=== PATIENT | female | born 1945 | race Caucasian/White ===

== ENCOUNTER 2022-07-26 13:48 | Emergency (ER) | payer MEDICARE, SELFPAY ==
--- NOTE | ~2022-07-26 | XR_ITS ---
EXAMINATION: [id number] INDICATION: Right rib pain TECHNIQUE: A frontal view of the chest and 3 views of the right ribs were obtained. COMPARISON: None. FINDINGS: The lungs are free of acute opacities. There is no pneumothorax. There are small pleural ef fusions. There is enlargement of the main and central pulmonary arteries, consistent with pulmonary h ypertension. The heart size is normal. A dual-lead cardiac pacemaker of the left chest wall ends with leads in expected locations. No displaced rib fracture is identified. IMPRESSION: 1. No displaced rib fracture identified.. 2. Small pleural effusions. Reviewed, dictated and finalized at location B. [employer]
[2022-07-26 13:59] VITALS: BP 132/54; PULSE 73; RESP 20; TEMP 36.6; O2SAT 98
--- NOTE | 2022-07-26 15:28 | ED.GENADULT ---
HPI - General Adult General Chief complaint: Unspecified Stated complaint: right side rib area injury Source: patient Mode of arrival: ambulatory Limitations: no limitations History of Present Illness HPI narrative: Patient presents for evaluation of right-sided rib pain since last week. She indicates she was sitting in a recliner when she dropped an object. She attempted to reach over the chair and her right ribs pushed into the arm rest. Since that time she has had 8 of 10 pain in her right ribs. She does get some shortness of breath but this is chronic and not worse from baseline. Denies any cough. She is taking Tylenol for symptoms. Tylenol has not made a considerablel difference in her pain severity. She is a former smoker. Pain is worse with inspiration and movement. No additional complaints or concerns. Related Data Home Medications Medication Instructions Recorded Confirmed buspirone 7.5 mg tablet 7.5 mg TID 07/26/22 07/26/22 citalopram 20 mg tablet 20 mg DAILY 07/26/22 07/26/22 cyanocobalamin (vitamin B-12) 1,000 mcg MONTHLY 07/26/22 07/26/22 1,000 mcg/mL injection solution diltiazem HCl 30 mg tablet 30 mg TID 07/26/22 07/26/22 empagliflozin 10 mg tablet 10 mg DAILY 07/26/22 07/26/22 (Jardiance) flecainide 100 mg tablet 100 mg BID 07/26/22 07/26/22 furosemide 20 mg tablet 20 mg DAILY 07/26/22 07/26/22 glimepiride 2 mg tablet 2 mg DAILY 07/26/22 07/26/22 lisinopril 40 mg tablet 40 mg DAILY 07/26/22 07/26/22 loratadine 10 mg tablet 10 mg DAILY 07/26/22 07/26/22 magnesium oxide 400 mg (241.3 mg 400 mg DAILY 07/26/22 07/26/22 magnesium) tablet meclizine 25 mg tablet 25 mg PO BID PRN Pain 07/26/22 07/26/22 metformin 1,000 mg tablet 1,000 mg BID 07/26/22 07/26/22 methocarbamol 750 mg tablet 750 mg TID 07/26/22 07/26/22 metoprolol succinate 50 mg 75 mg PO DAILY 07/26/22 07/26/22 tablet,extended release 24 hr omeprazole 20 mg capsule,delayed 20 mg DAILY 07/26/22 07/26/22 release potassium chloride 8 mEq 8 meq DAILY 07/26/22 07/26/22 capsule,extended release simvastatin 40 mg tablet 40 mg DAILY 07/26/22 07/26/22 tramadol 50 mg tablet 50 mg PRN 07/26/22 07/26/22 warfarin 1 mg tablet 1 mg PRN 07/26/22 07/26/22 warfarin 5 mg tablet 5 mg DAILY 07/26/22 07/26/22 Allergies Allergy/AdvReac Type Severity Reaction Status Date / Time No Known Allergies Allergy Verified 07/26/22 14:15 Review of Systems Review of Systems: CONSTITUTIONAL: Denies fever, chills, or sweats. EYES: Denies visual changes, redness, or discharge. ENT: Denies rhinorrhea, congestion, sore throat, or otalgia. CARDIOVASCULAR: Denies palpitations, or edema. RESPIRATORY: Reports chronic shortness of breath, unchanged from baseline. Denies cough GASTROINTESTINAL: Denies abdominal pain, nausea, vomiting, or diarrhea. GENITOURINARY: Denies dysuria or hematuria. SKIN: Denies rash or itching. MUSCULOSKELETAL: Reports right-sided rib pain. Denies back pain, joint pain, or myalgia. NEUROLOGIC: Denies headache, numbness, dizziness, or weakness. PSYCHIATRIC: Denies anxiety or depression. PMFSH Past Medical History Medical History Afib Diabetes Hypertension Rib contusion Surgical History Surgical History History of cholecystectomy Family History Family History Mother Family history non-contributory Social History Social History Smoking status: Former smoker Substance use: never Living arrangements: alone Gender identity (if verbalized by the patient): Female Spiritual care concerns: No Exam Narrative: GENERAL: Well-appearing, well-nourished, and in no acute distress. HEAD: Normocephalic, atraumatic. EYES: PERRLA and EOMI. ENT: Nares clear, no rhinorrhea or epistaxis. Mucous me
== END 2022-07-26 15:38 | disposition home or self-care (01) ==
PROVIDERS: Emergency Provider Nurse Practitioner; PCP Family Medicine
DX: S20.211A Contusion of right front wall of thorax, initial encounter (principal); X50.0XXA Overexertion from strenuous movement or load, initial encounter; Z87.891 Personal history of nicotine dependence; I48.91 Unspecified atrial fibrillation; E11.9 Type 2 diabetes mellitus without complications; I10 Essential (primary) hypertension; Z79.01 Long term (current) use of anticoagulants
CPT/HCPCS: 71101; 99213; G0463

== ENCOUNTER 2024-02-25 16:00 | Emergency (ER) | payer OTHER, SELFPAY ==
--- NOTE | ~2024-02-25 | XR_ITS ---
Clinical Indication: Chest tightness PA and lateral views of the chest: Comparison: None Findings: The lungs are clear, without evidence of focal consolidation or pleural effusion. Prominent central pulmonary vessels suggest pulmonary hypertension. Cardiomediastinal silhouette is within nor mal limits, with pacemaker device. Bones and soft tissues are unremarkable. Impression: Clear lungs. Suspected pulmonary artery hypertension. Pacemaker device. Reviewed, dictated and finalized at location . Impression: Clear lungs. Suspected pulmonary artery hypertension. Pacemaker device.
[2024-02-25 16:16] VITALS: BP 168/94; PULSE 78; RESP 16; TEMP 37.3; O2SAT 98
--- NOTE | 2024-02-25 16:31 | ED.URI ---
HPI - URI/Sore Throat General Chief Complaint: Upper Respiratory Infection Stated Complaint: Headache/Sore Throat/Cough/Chest Congestion Time Seen by Provider: 02/25/24 16:12 Source: patient, RN notes reviewed and old records reviewed Mode of arrival: ambulatory Limitations: no limitations History of Present Illness HPI Narrative: 78-year-old female to [facility] for complaint of dry cough, sore throat, chest tightness and headache for 4 days. Patient has attempted to treat at home with Mucinex and Coricidin with minimum relief. Patient reports history of AFib, diabetes, hypertension and pneumonia. Patient endorses increased activity intolerance. Patient denies fever, shortness breath, chest pain. Patient able to tolerate fluids by mouth. Patient is alert and oriented x3. Respirations even and nonlabored. Patient in no acute distress. Related Data Home Medications Medication Instructions Recorded Confirmed buspirone 7.5 mg tablet 7.5 mg TID 07/26/22 07/26/22 citalopram 20 mg tablet 20 mg DAILY 07/26/22 07/26/22 cyanocobalamin (vitamin B-12) 1,000 mcg MONTHLY 07/26/22 07/26/22 1,000 mcg/mL injection solution diltiazem HCl 30 mg tablet 30 mg TID 07/26/22 07/26/22 empagliflozin 10 mg tablet 10 mg DAILY 07/26/22 07/26/22 (Jardiance) flecainide 100 mg tablet 100 mg BID 07/26/22 07/26/22 furosemide 20 mg tablet 20 mg DAILY 07/26/22 07/26/22 glimepiride 2 mg tablet 2 mg DAILY 07/26/22 07/26/22 lisinopril 40 mg tablet 40 mg DAILY 07/26/22 07/26/22 loratadine 10 mg tablet 10 mg DAILY 07/26/22 07/26/22 magnesium oxide 400 mg (241.3 mg 400 mg DAILY 07/26/22 07/26/22 magnesium) tablet meclizine 25 mg tablet 25 mg PO BID PRN Pain 07/26/22 07/26/22 metformin 1,000 mg tablet 1,000 mg BID 07/26/22 07/26/22 methocarbamol 750 mg tablet 750 mg TID 07/26/22 07/26/22 metoprolol succinate 50 mg 75 mg PO DAILY 07/26/22 07/26/22 tablet,extended release 24 hr omeprazole 20 mg capsule,delayed 20 mg DAILY 07/26/22 07/26/22 release potassium chloride 8 mEq 8 meq DAILY 07/26/22 07/26/22 capsule,extended release simvastatin 40 mg tablet 40 mg DAILY 07/26/22 07/26/22 tramadol 50 mg tablet 50 mg PRN 07/26/22 07/26/22 warfarin 1 mg tablet 1 mg PRN 07/26/22 07/26/22 warfarin 5 mg tablet 5 mg DAILY 07/26/22 07/26/22 Allergies Allergy/AdvReac Type Severity Reaction Status Date / Time No Known Allergies Allergy Verified 07/26/22 14:15 Review of Systems Review of Systems: All systems reviewed & are unremarkable except as noted in HPI and below Constitutional: Constitutional: Reports no additional constitutional complaints Eyes: Eyes: Reports no additional eye complaints ENT: Reports system reviewed and no additional complaints, except as documented Cardiovascular: Cardiovascular: Reports no additional cardiovascular complaints, Denies chest pain and Denies dyspnea Respiratory: Respiratory: Reports no additional respiratory complaints, Denies cough and Denies dyspnea Musculoskeletal: Musculoskeletal: Reports no additional musculoskeletal complaints Neurologic: Reports system reviewed and no additional complaints, except as documented Psychiatric: Psychiatric: Reports no additional psychiatric complaints [facility] Past Medical History Medical History (Updated 02/25/24 @ 18:35 by Radha Masterson APRN) Afib Diabetes Hypertension Rib contusion Surgical History Surgical History History of cholecystectomy Family History Family History Mother Family history non-contributory Social History Social History Smoking status: Former smoker Substance use: never Living arrangements: alone Gender identity (if verbalized by the patient): Female Spiritual care concerns: No Comments At the time of my signature, I reviewed and agree w
--- NOTE | 2024-02-25 18:07 | PC.NURSE ---
1807- pt arrived from [facility] for CXR.
== END 2024-02-25 18:41 | disposition home or self-care (01) ==
PROVIDERS: Emergency Provider Nurse Practitioner Family; PCP Family Medicine
DX: J06.9 Acute upper respiratory infection, unspecified (principal); Z87.891 Personal history of nicotine dependence; I48.91 Unspecified atrial fibrillation; E11.9 Type 2 diabetes mellitus without complications; I10 Essential (primary) hypertension
CPT/HCPCS: 71046; 99213; G0463